=== PATIENT | female | born 1950 | race Caucasian/White ===

== ENCOUNTER → 2019-09-11 09:08 | Outpatient (CLI) | payer MEDICARE, OTHER, SELFPAY ==
--- NOTE | 2019-09-11 | DI.MRI.S_ITS ---
PROCEDURE: MR FOOT RT WO/W CON INDICATIONS: PAIN IN RIGHT FOOT TECHNIQUE: Noncontrast coronal T1 spin echo and STIR, sagittal T1 spin echo with fat saturation and STIR, axial T1 spin echo and T2 fast spin echo with fat saturation. After the administration of contrast, axial/sagittal/coronal T1 spin echo with fat saturation through the right foot. COMPARISON: None. FINDINGS: Image quality: Excellent. Bones: Bone marrow edema present within the lateral hallux sesamoid and to a lesser extent the medial hallux sesamoid. However, fat signal intensity appears preserved on T1 weighted images. The overlying cortex appears intact. No abnormal intraosseous enhancement. First MTP joint degeneration. Soft tissues: No soft tissue masses are visualized. There is dorsal subcutaneous edema The scanned muscles demonstrate normal overall bulk and internal signal. No abnormal soft tissue enhancement. IMPRESSION: Findings suggest lateral greater than medial hallux sesamoiditis, technically non-specific etiology; recommend clinical correlation to point tenderness. First MTP joint degeneration. Nonspecific dorsal subcutaneous edema. No suspicious enhancement. Dictated by: Nils Martin M.D. on 09/11/2019 at 11:34 Approved by: Nils Martin M.D. on 09/11/2019 at 11:44
== END ==
PROVIDERS: PCP Family Medicine; Visit Provider Podiatrist
DX: M79.671 Pain in right foot (principal); M19.071 Primary osteoarthritis, right ankle and foot; M25.474 Effusion, right foot
CPT/HCPCS: 73720